=== PATIENT | male | born 1995 | race Caucasian/White ===

== ENCOUNTER 2016-08-12 20:05 | Emergency (ER) | payer OTHER ==
--- NOTE | ~2016-08-12 | CR94 ---
[facility] A Service of [facility] [place] RADIOLOGY TEXT RESULTS PATIENT: KANDACE OCONNELL LOCATION: SED : 95 UNIT #: [id number] AGE: [address]: NAHEED GRIFFIN SEX: M ORDER DR: [id number] [place] [address] [id number] MR#: [id number] Acc #: [id number] NAME: KANDACE OCONNELL. : 1995 SEX: M STUDY DATE/TIME: 08/12/2016 21:48 UNIT: SED ROOM: STUDY DESCRIPTION: CR Elbow Min 3 Views Rt Attending Physician: Naheed Griffin Aprn Ordering Physician: Naheed Griffin Aprn Primary Care Physician: Sb Anderson M.D. MEDICAL IMAGING REPORT This report is preliminary unless electronic signature is present. EXAM Right elbow series, 08/12/2016 HISTORY 21-year-old male in the ED with glass laceration to the upper forearm occurring about 10 minutes prior to arrival. Fell through a glass door. TECHNIQUE Three-view right elbow series. FINDINGS The exam shows soft tissue laceration along the posterior and medial aspect of the upper forearm below the elbow. No visible radiopaque soft tissue foreign body. Remainder of exam is negative. No fracture or other acute osseous abnormality. IMPRESSION Soft tissue laceration. Right elbow series is otherwise negative. Dictated by... Brennon Walton M.D. THIS IS AN ELECTRONICALLY VERIFIED REPORT Brennon Walton M.D. at 08/13/2016 10:15 AM QUIQUE/kervin TD: 08/13/2016 03:00 JOB #: [id number] [facility] A Service [facility] RADIOLOGY TEXT RESULTS PATIENT: KANDACE OCONNELL LOCATION: SED : 95 UNIT #: [id number] AGE: [address]: NAHEED GRIFFIN SEX: M ORDER DR: MEDICAL IMAGING REPORT Page 1 of 1
[~2016-08-12 20:05] MED LIST: AMOXICILLIN500 M1 PO; BACTRIM DS TABL1 TA1 PO; BENTYL20 MG DOB; BENTYL20 MG PO; CIPROFLOXACIN500 M1 PO; NO MEDICATIONS; PHENERGAN25 MG PO
== END 2016-08-12 22:45 | disposition home or self-care (01) ==
LOC: SED 20:05
DX: S51.011A Laceration without foreign body of right elbow, initial encounter (principal); F17.210 Nicotine dependence, cigarettes, uncomplicated; W18.09XA Striking against other object with subsequent fall, initial encounter
CPT/HCPCS: 12002; 73080; 99283